=== PATIENT | male | born 1980 | race Caucasian/White ===

== ENCOUNTER 2021-11-29 10:27 | Day surgery (SDC) | payer OTHER, SELFPAY ==
[2021-11-28 11:36] VITALS: BMI 34.4
[2021-11-29] VITALS (7 sets, daily range): BP systolic 130–157; BP diastolic 82–96; PULSE 61–78; RESP 14–20; TEMP 36.1–36.6; O2SAT 95–99
--- NOTE | 2021-11-29 11:00 | ANES.PREANE2 ---
Pre-Anesthetic Assessment Height/Weight: Height 1.78 m Weight 108.862 kg Preop Diagnosis: Carpal tunnel syndrome right Operation Date: 11/29/21 12:00 Proposed Procedures p Carpal Tunnel Release 41624/g56.03(Right) - Mikael Mock MD Familial anesthetic complications: None Was Beta Edi taken within 24 hours: N/A Was Clonidine taken within 24 hours: N/A Social No alcohol and No tobacco Exam alert, oriented x 3, clear to auscultation bilaterally and regular rate & rhythm Airway Submandibular: within normal limits Cervical ROM: within normal limits Mallampati: Class I Dentition: full History/ROS No significant complaints Pulmonary None reported CV/HEM None reported None reported Hepatic None reported GI None reported Metabolic None reported Musc/skel None reported Neuropsych Neuropathy (Carpal tunnel ) Anesthetic Plan ASA status: 1 Anesthesia: Anesthesia Evaluation, MAC and Regional (specify below) Other: Plan [place] block with sedation Risk of > 500 ml blood loss (7ml/kg in children): No Medications/Allergies Home Medications Medication Instructions Recorded Confirmed Last Taken Type No Known Home Medications 09/17/21 11/28/21 Unknown History Allergies Allergy/AdvReac Type Severity Reaction Status Date / Time amoxicillin Allergy Unknown Verified 11/28/21 11:34 clindamycin Allergy Unknown Verified 11/28/21 11:34 [facility] Anesthesia Social History Smoking and tobacco status: never smoked Alcohol intake: never History of recent travel: No Data Anesthesia Cardiac Studies: No Data to Display
[2021-11-29] MEDS: sodium chloride 0.9% 1,000 ML 30 ML IV (11:43)
--- NOTE | 2021-11-29 11:59 | W.PM.OPSUD ---
Surgery/Procedure H&P Update DATE OF PROCEDURE: November 29, 2021 DATE H&P PERFORMED: 10/30/21 H&P UPDATE INFORMATION: I have reviewed H&P completed within last 30 days PREOP DIAGNOSIS: Carpal tunnel syndrome right PLANNED PROCEDURE: Operation Date: 11/29/21 12:00 Proposed Procedures p Carpal Tunnel Release [id number]/g56.03(Right) - Mikael Mock MD
--- NOTE | 2021-11-29 12:56 | P.OP_ITS ---
Operative Report Date of procedure: November 29, 2021 Pre-op diagnosis: Preop Diagnosis Carpal tunnel syndrome right Post-op diagnosis: same Post-op diagnosis: Same Procedure done: Right carpal tunnel release Pathology: none sent Surgeon: Mikael Mock Anesthesia: Nerve Block ([place] block) Estimated blood loss (mL): 2 Tourniquet time (min): 20 Findings: No masses or space-occupying lesion seen in the right carpal tunnel Condition: stable Disposition: PACU Procedure: Patient was taken to the operating room and anesthesia provided by the anesthesia service. She was prepped and draped with the arm exposed. A timeout was performed. A 3 cm long incision was made in line with the fourth ray from the distal edge of the carpal tunnel extending proximally. The subcutaneous fat and palmar fascia was divided with a scalpel blade. Under loupe magnification the ulnar neurovascular bundle was identified distally. A hemostat could be passed under the transverse carpal ligament allowing the distal 25% to be divided. A slotted guide was then passed beneath the transverse carpal ligament and the middle 50% divided. Blunt scissors were then passed over the guide freeing the proximal ligament. The tourniquet was deflated. Hemostasis provided with electrocautery. Wound edges were infiltrated with 10 cc of a half percent Marcaine solution. Skin edges were reapproximated with 3-0 Prolene. Sterile dressings were applied. The patient was taken to the recovery room in stable condition
--- NOTE | 2021-11-29 18:42 | ANE.PACU2 ---
Inpatient post-anesthesia follow up: Airway intact: Yes Vital signs: Temperature 97.9 F Pulse Rate 78 Respiratory Rate 14 Blood Pressure 141/88 Pulse Oximetry 98 Oxygen Delivery Me thod Room Air Oxygen Flow Rate 6 Fraction of Inspir ed Oxygen Hydration adequate: Yes Nausea and vomiting: No Pain level: 1 Mental status: Baseline
== END 2021-11-29 14:10 | disposition home or self-care (01) ==
PROVIDERS: PCP Family Medicine; Visit Provider Orthopaedic Surgery
PROC: (CPT 64721; principal; 2021-11-29 12:00)
DX: G56.01 Carpal tunnel syndrome, right upper limb (principal)
CPT/HCPCS: 64721; J0690; J2250; J2704; J3490; J7030

== ENCOUNTER 2022-05-30 05:51 | Day surgery (SDC) | payer OTHER, SELFPAY ==
[2022-05-29 11:23] VITALS: BMI 35.2
[2022-05-30] VITALS (8 sets, daily range): BP systolic 120–169; BP diastolic 84–102; PULSE 67–78; RESP 16–18; TEMP 36.1–36.5; O2SAT 92–97
[2022-05-30] MEDS: sodium chloride 0.9% 1,000 ML 30 ML IV (06:11)
[2022-05-30] MEDS: ceFAZolin 2,000 MG in sodium chloride 0.9% (plus) 50 ML 100 MG IV (07:04)
--- NOTE | 2022-05-30 07:45 | W.PM.OPSUD ---
Surgery/Procedure H&P Update DATE OF PROCEDURE: May 30, 2022 DATE H&P PERFORMED: 05/07/22 H&P UPDATE INFORMATION: I have reviewed H&P completed within last 30 days PREOP DIAGNOSIS: Left carpal tunnel syndrome PLANNED PROCEDURE: Operation Date: 05/30/22 07:00 Proposed Procedures p left carpal tunnel release/ [id number],G56.02(Left) - Mikael Mock MD
--- NOTE | 2022-05-30 07:46 | PM.OP ---
Operative Report Date of procedure: May 30, 2022 Pre-op diagnosis: Preop Diagnosis Left carpal tunnel syndrome Post-op diagnosis: same Post-op diagnosis: Same Procedure done: Left carpal tunnel release Pathology: none sent Surgeon: Mikael Mock Anesthesia: General Estimated blood loss (mL): 2 Tourniquet time (min): 6 Findings: No masses or space-occupying lesions were seen within the carpal tunnel Condition: stable Disposition: PACU Procedure: Patient was taken to the operating room and anesthesia provided by the anesthesia service. She was prepped and draped with the arm exposed. A timeout was performed. A 3 cm long incision was made in line with the fourth ray from the distal edge of the carpal tunnel extending proximally. The subcutaneous fat and palmar fascia was divided with a scalpel blade. Under loupe magnification the ulnar neurovascular bundle was identified distally. A hemostat could be passed under the transverse carpal ligament allowing the distal 25% to be divided. A slotted guide was then passed beneath the transverse carpal ligament and the middle 50% divided. Blunt scissors were then passed over the guide freeing the proximal ligament. The tourniquet was deflated. Hemostasis provided with electrocautery. Wound edges were infiltrated with 10 cc of a half percent Marcaine solution. Skin edges were reapproximated with 3-0 Prolene. Sterile dressings were applied. The patient was taken to the recovery room in stable condition
[2022-05-30] MEDS: HYDROcodone-acetaminophen 5-325 mg Tablet 1 TAB PO (08:42)
--- NOTE | 2022-05-30 14:47 | ANES.PREANE2 ---
Pre-Anesthetic Assessment Height/Weight: Height 1.78 m Weight 111.13 kg Temp Pulse Resp BP Pulse Ox O2 Del Method O2 Flow Rate 97.2 F L 76 18 152/84 96 2 05/30/22 08:30 05/30/22 08:30 05/30/22 08:30 05/30/22 08:30 05/30/22 08:30 05/30/22 08:30 05/30/22 08:10 Preop Diagnosis: Left carpal tunnel syndrome Operation Date: 05/30/22 07:00 Proposed Procedures p left carpal tunnel release/ [id number],G56.02(Left) - Mikael Mock MD Familial anesthetic complications: none Was Beta Edi taken within 24 hours: N/A Was Clonidine taken within 24 hours: N/A Last intake: Intake Last Liquid Date 05/29/22 Last Liquid Time 21:00 Last Solid Date 05/29/22 Last Solid Time 21:00 Social No alcohol and No tobacco Exam alert, oriented x 3, clear to auscultation bilaterally and regular rate & rhythm Airway Submandibular: within normal limits Cervical ROM: within normal limits Mallampati: Class II Dentition: full Metabolic Morbid Obesity Neuropsych Neuropathy Anesthetic Plan ASA status: 2 Anesthesia: MAC Medications/Allergies Home Medications Medication Instructions Recorded Confirmed Last Taken Type hydrocodone 5 mg-acetaminophen 325 1 tab PO Q4H #15 tabs 05/30/22 Unknown Rx mg tablet Allergies Allergy/AdvReac Type Severity Reaction Status Date / Time amoxicillin Allergy Unknown Verified 05/29/22 11:22 clindamycin Allergy Unknown Verified 05/29/22 11:22 [facility] Anesthesia Social History Smoking and tobacco status: never smoked Alcohol intake: never History of recent travel: No Data Anesthesia Cardiac Studies: No Data to Display
--- NOTE | 2022-05-30 14:48 | ANE.PACU2 ---
Inpatient post-anesthesia follow up: Airway intact: Yes Vital signs: Temperature 97.2 F Pulse Rate 76 Respiratory Rate 18 Blood Pressure 152/84 Pulse Oximetry 96 Oxygen Delivery Me thod Room Air Oxygen Flow Rate 2 Fraction of Inspir ed Oxygen Hydration adequate: Yes Nausea and vomiting: No Pain level: 2 Mental status: Baseline
== END 2022-05-30 08:52 | disposition home or self-care (01) ==
PROVIDERS: PCP Family Medicine; Visit Provider Orthopaedic Surgery
PROC: (CPT 64721; principal; 2022-05-30 07:00)
DX: G56.02 Carpal tunnel syndrome, left upper limb (principal); E66.01 Morbid (severe) obesity due to excess calories; Z68.35 Body mass index [BMI] 35.0-35.9, adult
CPT/HCPCS: 64721; J1100; J2250; J2370; J2405; J2704; J3010; J3490; J7030

== ENCOUNTER 2023-03-01 21:52 | Emergency (ER) | payer OTHER, SELFPAY ==
[2023-03-01 21:58] VITALS: BP 171/97; PULSE 67; RESP 18; TEMP 36.4; O2SAT 98
[2023-03-02] VITALS: BP 133/90; PULSE 73; O2SAT 94
[2023-03-02] MEDS: dexamethasone 4 mg Tablet 10 MG PO (00:05)
[2023-03-02 00:06] VITALS: RESP 18; O2SAT 95
[2023-03-02] MEDS: oxyCODONE-APAP 5-325 mg Tablet 2 TAB PO (00:06)
[2023-03-02] MEDS: ketorolac 60 mg/2 mL INJ IM (00:07)
[2023-03-02] MEDS: cephALEXin 500 mg Capsule 1000 MG PO (00:08)
[2023-03-02 00:13] VITALS: BP 135/87; PULSE 65; O2SAT 98
[2023-03-02 00:51] VITALS: BP 142/99; PULSE 69; RESP 18; O2SAT 96
--- NOTE | 2023-03-02 01:37 | ED_ITS ---
HPI - Dental/Oral General: Chief complaint: Dental/Oral Stated complaint: Jaw Pain Time Seen by Provider: 03/01/23 23:05 Source: patient and family History of Present Illness: 42-year-old male patient seen in urgent care setting, and prescribed Bactrim for presumed dental abscess on the left lower side. He complains of continued pain despite 3 doses of antibiotics. Pain is not controlled using ibuprofen, Tylenol, and Aleve. No fever. No trouble swallowing. Jaw feels swollen. MD Complaint: tooth pain Onset (ago): day(s) Duration: constant Severity: moderate Relieving factors: NSAIDs Exacerbating factors: chewing and swallowing Associated symptoms: Reports ear or mastoid pain, gum swelling and odynophagia (Mild); Denies fever(s) or tongue swelling Review of Systems Const: Denies: fever(s) ENMT: Reports: odynophagia (Mild) and ear or mastoid pain Card: Denies: chest pain Resp: Denies: dyspnea GI: Denies: vomiting All/Imm: Denies: tongue swelling PFSH ED PFSH: Social History Smoking and tobacco status: never smoked Alcohol intake: never Substance/Drug Use: never Physical Exam Const: COMMON NORMALS: no acute distress GENERAL APPEARANCE: cooperative; not ill appearing and not frail appearing HENMT: COMMON NORMALS: normocephalic, atraumatic and Normal external nose present HEAD & SCALP: normocephalic and atraumatic FACE & SINUS: normal facial exam and face symmetric NOSE: Normal external nose present OTHER: Left lower molar surrounding gingival inflammation and swelling. No pointing abscess noted. Tender to palpation. Eye: COMMON NORMALS: Equal, round and reactive pupils present and EOMs intact bilaterally PUPIL: Yes Equal, round and reactive pupils present Neck/C-Spine: GENERAL: Yes trachea midline and Yes lymphadenopathy Lymphadenopathy location: submandibular and anterior cervical OTHER: No significant swelling to the floor of the jaw Chest: CHEST: Yes Symmetrical chest wall rise Resp: COMMON NORMALS: normal respiratory effort, No retractions, No use of accessory muscles and clear to auscultation bilaterally AUSCULTATION: clear to auscultation bilaterally Cardio: COMMON NORMALS: regular rate and regular rhythm RATE: regular rate RHYTHM: regular rhythm GI: COMMON NORMALS: Normal to inspection, nondistended, normoactive bowel sounds present Extremity: COMMON NORMALS: no pedal edema Neuro: SHILO COMA SCALE: document GCS findings [place] coma scale eye opening: Spontaneous [place] coma scale verbal response: Orientated [place] coma scale motor response: Obey commands Shilo coma scale total score: 15 SENSORY EXAM: Yes extremities (intact) Psych: COMMON NORMALS: speech normal SPEECH: Yes normal speech Skin: COMMON NORMALS: no rashes or lesions noted GENERAL SKIN EXAM: no rashes or lesions noted Course Vital Signs: Vital signs: Vital Signs Temperature 97.6 F 03/01/23 21:58 Pulse Rate 69 03/02/23 00:51 Respiratory Rate 18 03/02/23 00:51 Blood Pressure 142/99 03/02/23 00:51 Pulse Oximetry 96 03/02/23 00:51 Oxygen Delivery Me thod Room Air 03/02/23 00:13 [facility] - Dental/Oral Medical Decision Making The patient does note a history of extensive sinus problems. However, his sinus exam is essentially normal. He does have an inflamed swollen gum on his lower left molar area with tooth tenderness. There are some lymphadenopathy on that side. He is given dexamethasone, Toradol, pain medication, and Keflex here. He carries allergies to clindamycin and penicillins. He believes he has taken cephalexin before without any problem. Bactrim will be switched to cephalexin. Pain medication and Toradol to alternate. Follow-up with dentist. Discharge Plan Discharge Patient Disposition: Home Clinical Impression: Gingival abscess Condition: Stable Prescriptions: New cephalexin 500 mg capsule 500 mg PO Q6H 10 Days Qty: 40 0RF hydrocodone-acetaminophen 5-325 mg tablet 1 tab PO Q8H PRN (Reason: pain) Qty: 7 0RF ketorolac 10 mg tablet 10 mg PO TID PRN (Reason: pain) Qty: 10 0RF Discharge Orders: Discharge ED (Routine); Ordered 03/01/23 Ordered By: Nikhil Thompson Referrals: Jevon Suarez MD [Primary Care Provider] - 4-7 days Patient Instructions: Dental Abscess (ED), Opioid Safety, Pain Management Activity Restrictions/Additional Instructions: Stop your Bactrim, in favor of the cephalexin you were prescribed. Do not take ibuprofen or Aleve while taking ketorolac. You can alternate this with pain medication prescribed. See your dentist this coming week. Return for problems. Coding Level of Care Code ED Secondary Teacher for Bev Christiansen
== END 2023-03-02 00:53 | disposition home or self-care (01) ==
PROVIDERS: Emergency Provider Emergency Medicine; PCP Family Medicine
DX: K05.20 Aggressive periodontitis, unspecified (principal); Z88.0 Allergy status to penicillin
CPT/HCPCS: 96372; 99284; J1885; J8540

== ENCOUNTER 2024-08-25 19:09 | Emergency (ER) | payer OTHER, SELFPAY ==
--- NOTE | 2024-08-25 19:17 | XRR_ITS ---
PROCEDURE INFORMATION: Exam: XR Chest Exam date and time: 08/25/2024 8:27 PM Age: 44 years old Clinical indication: Cough TECHNIQUE: Imaging protocol: Radiologic exam of the chest. Views: 1 view. COMPARISON: No relevant prior studies available. FINDINGS: Lungs: Unremarkable. No consolidation. Pleural spaces: Unremarkable. No pleural effusion. No pneumothorax. Heart/Mediastinum: Unremarkable. No cardiomegaly. Bones/joints: Unremarkable. XR/XR chest 1V portable [id number] IMPRESSION: No acute cardiopulmonary process.
[2024-08-25 19:24] VITALS: BP 155/95; PULSE 77; TEMP 36.7; O2SAT 98; BMI 37.3
[2024-08-25 20:08] VITALS: BP 144/83; PULSE 81; RESP 17; O2SAT 96
--- NOTE | 2024-08-25 20:10 | ECG_ITS ---
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 Measurements Intervals [place] Rate: 78 P: 34 LA: 150 QRS: 35 QRSD: 88 T: 46 QT: 356 QTc: 408 Interpretive Statements SINUS RHYTHM No previous ECG available for comparison Electronically Signed On 08-26-2024 12:27:12 OFFICE RN by Oswald Mckay M.D. [id number]
--- NOTE | 2024-08-25 20:13 | W.ED.SYNCOPE ---
HPI - Syncope General: Chief Complaint: Syncope Stated Complaint: coughed till passed out 2x Time Seen by Provider: 08/25/24 20:01 Source: patient Mode of arrival: ambulatory Limitations: no limitations History of Present Illness: Patient is a 44-year-old male with no pertinent past medical history who reports to the emergency department with a syncopal episode occurring tonight. This was reportedly witnessed and came after patient had a coughing spell. Patient states that 3 weeks ago he had a similar incident where he was coughing and suddenly blacked out. That episode was witnessed to but he did not seek evaluation afterwards. Patient states he has been coughing since beginning of June, has been seen urgent care for this and treated with multiple rounds of antibiotics but cough is still present. Is also tried [id number] antitussives as well as Tessalon Perles. With wolf's episode, states that he was laughing and this caused him to have a coughing fit, this seems to be the only thing that causes him to have an exacerbation his cough. He does note that it has been constant since he noticed it almost 2 months ago. It is nonproductive. He does not report any chest pain, states that when he has a coughing fit he does feel short of breath but is not short of breath at baseline. Denies any injuries with falling, reportedly tonight he just fell out of his chair. No pertinent cardiac history or previous cardiac workup, no specific family history of cardiac issues at an early age. MD complaint: other (Syncope) Onset (ago): minute(s) -: second(s) Prodromal symptoms: other (Coughing excessively) Witnessed: Yes - by Bystander Injuries sustained associated with event: none Associated symptoms: Deny abdominal pain, chest pain, fever(s), headache(s), lightheadedness or nausea Treatments prior to arrival: none Related Data Previous Rx's Medication Instructions Recorded hydrocodone 5 mg-acetaminophen 325 1 tab PO Q8H PRN pain #7 tabs 03/01/23 mg tablet ketorolac 10 mg tablet 10 mg PO TID PRN pain #10 tabs 03/01/23 Allergies Allergy/AdvReac Type Severity Reaction Status Date / Time amoxicillin Allergy Mild ALGY-Rash Verified 08/25/24 19:34 cephalexin Allergy ALGY-Rash Verified 08/25/24 19:34 clindamycin Allergy ALGY-Rash Verified 08/25/24 19:34 Review of Systems General: Reports: 10 or more systems reviewed and unremarkable except in HPI and below Const: Denies: fever(s), chills or fatigue Eyes: Denies: change in vision ENMT: Denies: throat pain, ear or mastoid pain or nasal discharge Card: Reports: syncope; Denies: chest pain, palpitations, swelling of feet/ankles or lightheadedness Resp: Reports: dyspnea and non-productive cough; Denies: productive cough or wheezing GI: Denies: abdominal pain, nausea, vomiting, diarrhea or constipation : Denies: flank pain, difficulty urinating, dysuria or urinary frequency Musc: Denies: neck pain, back pain or joint pain Skin/Breast: Denies: rash Neuro: Denies: headache(s), numbness in extremities or weakness in extremities PFSH ED PFSH: Social History Smoking and tobacco/nicotine status: never used tobacco/nicotine Alcohol intake: never Substance/Drug Use: never Physical Exam Const: COMMON NORMALS: no acute distress, patient oriented x3 and no limitations GENERAL APPEARANCE: cooperative, comfortable and well developed ORIENTATION/CONSCIOUSNESS: Yes awake, Yes oriented to person, Yes oriented to place and Yes oriented to time HENMT: COMMON NORMALS: normocephalic, atraumatic and hearing grossly normal bilaterally HEAD & SCALP: normocephalic and atraumatic Eye: COMMON NORMALS: Equal, round and reactive pupils present, EOMs intact bilaterally and conjunctivae normal CONJUNCTIVA: Yes conjunctivae normal PUPIL: Yes Equal, round and reactive pupils present Neck/C-Spine: COMMON NORMALS: full ROM, supple and no JVD Resp: COMMON NORMALS: normal respiratory effort, No retractions, No use of accessory muscles and clear to auscultation bilaterally AUSCULTATION: clear to auscultation bilaterally Cardio: COMMON NORMALS: no JVD, regular rate, regular rhythm, No clicks present (Cardio), No murmurs present (Cardio) and No rub (Cardio) RATE: regular rate RHYTHM: regular rhythm Extremity: COMMON NORMALS: normal to inspection, full ROM and capillary refill normal Neuro: COMMON NORMALS: patient oriented x3, moves all extremities, no focal motor deficits and no sensory deficits noted SENSORIUM/ORIENTATION: Yes oriented to person, Yes oriented to place and Yes oriented to time Skin: COMMON NORMALS: no rashes or lesions noted GENERAL SKIN EXAM: no rashes or lesions noted Course Vital Signs: Vital signs: Vital Signs Temperature 98.1 F 08/25/24 19:24 Pulse Rate 76 08/25/24 22:09 Respiratory Rate 16 08/25/24 22:09 Blood Pressure 124/74 08/25/24 22:09 Pulse Oximetry 95 08/25/24 22:09 Oxygen Delivery Me thod Room Air 08/25/24 20:48 MDM - Syncope Medical Decision Making Patient presented after syncopal episode today following a coughing fit. This was a second incident. No pertinent cardiac history or other medical history to note for that matter. He had been treated previously with Tessalon Perles, multiple antibiotics, and steroids for his cough. Still was having the cough, physical exam was normal but he did have a couple of episodes of nonproductive coughing fits here in the emergency department. His troponin was normal, EKG obtained showing normal sinus rhythm with no acute STEMI. Chest x-ray unremarkable and his lab work normal. Unknown what might be causing his cough, he had stated that promethazine helped in the past so a dose was ordered for here in the emergency department. Otherwise told him to follow-up with his primary care for further outpatient management, does not appear that his syncopal episode is cardiac related and no signs of pneumonia or other pulmonary process warranting further workup here in the emergency department. Although strict return precautions given, patient agrees with this plan will be discharged home and call his primary care tomorrow to set up an appointment. Lab Data 08/25/24 20:23 08/25/24 20:23 Radiology Impressions Chest X-Ray 08/25/24 19:17 IMPRESSION: No acute cardiopulmonary process. Laboratory Results WBC 6.51 10^3/uL (3.29-11.43) 08/25/24 20:23 RBC 5.51 10^6/uL (3.85-5.65) 08/25/24 20:23 Hgb 16.30 g/dL (11.27-16.99) 08/25/24 20:23 Hct 49.4 % (37-53) 08/25/24 20:23 MCV 89.7 fl (82-101) 08/25/24 20:23 MCH 29.6 pg (27-33) 08/25/24 20:23 MCHC 33.0 g/dL (30-55) 08/25/24 20:23 RDW 13.4 % (12.1-15.1) 08/25/24 20:23 Plt Count 170 10^3/cmm (157-399) 08/25/24 20:23 MPV 10.0 fL (7.4-10.4) 08/25/24 20:23 Neut % (Auto) 49.6 % 08/25/24 20:23 Lymph % (Auto) 30.3 % 08/25/24 20:23 [place] % (Auto) 13.8 % 08/25/24 20:23 Eos % (Auto) 4.3 % 08/25/24 20:23 Baso % (Auto) 1.7 % 08/25/24 20:23 Neut # (Auto) 3.23 10^3/uL (1.8-7.7) 08/25/24 20:23 Lymph # (Auto) 2.0 10^3/uL (0.8-4.8) 08/25/24 20:23 [place] # (Auto) 0.9 10^3/uL (0.2-0.9) 08/25/24 20:23 Eos # (Auto) 0.3 10^3/uL (0.0-0.8) 08/25/24 20:23 Baso # (Auto) 0.1 10^3/uL (0.0-0.1) 08/25/24 20:23 Nucleated RBC % (auto) 0 % 08/25/24 20: Nucleated RBCs # 0.0 /100WBC 08/25/24 20:23 Sodium 139 mmol/L (136-145) 08/25/24 20:23 Potassium 4.5 mmol/L (3.5-5.1) 08/25/24 20:23 Chloride 104 mmol/L (98-107) 08/25/24 20:23 Carbon Dioxide 24 mmol/L (22-29) 08/25/24 20:23 Anion Gap 15.5 (5-19) 08/25/24 20:23 BUN 10 mg/dL (6-20) 08/25/24 20:23 Creatinine 1.2 mg/dL (0.7-1.2) 08/25/24 20:23 GFR Calculation 65.5 mL/min (90-130) L 08/25/24 20:23 Glucose 110 mg/dL (65-115) 08/25/24 20:23 Calculated Osmolality 288 mOsm/kg (285-295) 08/25/24 20:23 Calcium 8.5 mg/dL (8.5-10.5) 08/25/24 20:23 Total Bilirubin 0.6 mg/dL (0.15-1.2) 08/25/24 20:23 AST 27 U/L (0-40) 08/25/24 20:23 ALT 53 U/L (0-41) H 08/25/24 20:23 Alkaline Phosphatase 98 U/L (40-130) 08/25/24 20:23 Troponin T Baseline < 6 ng/L (0-15) 08/25/24 20:23 Total Protein 6.4 g/dL (6.6-8.7) L 08/25/24 20:23 Albumin 4.2 g/dL (3.5-5.2) 08/25/24 20:23 Globulin 2.2 g/dL (1.3-4.6) 08/25/24 20:23 All radiology interpretation(s) finalized by discharge EKG Data EKG 1: I personally reviewed and interpreted this EKG as follows: EKG interpretation date: 08/25/24 EKG interpretation time: 20:20 Prior EKG tracings: not available for review Interpretation: Normal sinus rhythm. Rate 78. No acute STEMI. No previous for comparison. Discharge Plan Discharge Patient Disposition: Home Clinical Impression: Syncope, non cardiac, Chronic cough Condition: Stable Prescriptions: No Action hydrocodone-acetaminophen 5-325 mg tablet 1 tab PO Q8H PRN (Reason: pain) Qty: 7 0RF ketorolac 10 mg tablet 10 mg PO TID PRN (Reason: pain) Qty: 10 0RF Discharge Orders: Discharge ED (Routine); Ordered 08/25/24 Ordered By: Bulmaro Burgos Referrals: Jevon Suarez MD [Primary Care Provider] - Patient Instructions: Syncope (ED) Activity Restrictions/Additional Instructions: Please call your primary care's office in the morning to schedule follow-up appointment. Drink plenty of fluids, if you feel that you need to cough, make sure you are in a seated position and not in a position to have a syncopal episode. Please return with any chest pain, shortness of breath, or other concerning symptoms. Coding Level of Care Code ED Chief Dog License Inspector for Bev Christiansen
[2024-08-25 20:27] LABS: Basophils # 0.1 10^3/uL (0.0-0.1); Basophils % 1.7 %; Eosinophils # 0.3 10^3/uL (0.0-0.8); Eosinophils % 4.3 %; Hematocrit 49.4 % (37-53); Lymphocytes % 30.3 %; Mean Corpuscular Hemoglobin 29.6 pg (27-33); Mean Corpuscular Volume 89.7 fl (82-101); Monocytes # 0.9 10^3/uL (0.2-0.9); Monocytes % 13.8 %; Neutrophils # 3.23 10^3/uL (1.8-7.7); Neutrophils % 49.6 %; Nucleated Red Blood Cells % 0 %; Platelet Count 170 10^3/cmm (157-399); Red Blood Count 5.51 10^6/uL (3.85-5.65); Red Cell Distribution Width 13.4 % (12.1-15.1); White Blood Count 6.51 10^3/uL (3.29-11.43)
[2024-08-25 20:45] LABS: Troponin(5th) Baseline < 6 ng/L (0-15)
[2024-08-25 20:48] VITALS: BP 148/97; PULSE 96; RESP 16; O2SAT 96
[2024-08-25 21:06] VITALS: BP 150/92; PULSE 73; RESP 16; O2SAT 94
[2024-08-25 21:19] LABS: Alanine Aminotransferase 53 U/L (0-41); Albumin Level 4.2 g/dL (3.5-5.2); Alkaline Phosphatase 98 U/L (40-130); Anion Gap 15.5 (5-19); Aspartate Amino Transferase 27 U/L (0-40); Blood Urea Nitrogen 10 mg/dL (6-20); Calcium 8.5 mg/dL (8.5-10.5); Carbon Dioxide 24 mmol/L (22-29); Chloride 104 mmol/L (98-107); Creatinine Clr Calc Pharmacy 100.0288; Globulin 2.2 g/dL (1.3-4.6); Glomerular Filtration Rate 65.5 mL/min (90-130); Glucose 110 mg/dL (65-115); Osmolality Calculated 288 mOsm/kg (285-295); Potassium 4.5 mmol/L (3.5-5.1); Sodium 139 mmol/L (136-145); Total Bilirubin 0.6 mg/dL (0.15-1.2); Total Protein 6.4 g/dL (6.6-8.7)
[2024-08-25 22:09] VITALS: BP 124/74; PULSE 76; RESP 16; O2SAT 95
[2024-08-25 22:55] LABS: Troponin 5 2HR 8.02 ng/L (0-15); Troponin 5 2HR Delta 2.02001 ABS# (0-10)
[2024-08-25 23:05] VITALS: BP 124/74; PULSE 76; O2SAT 95
== END 2024-08-25 23:06 | disposition home or self-care (01) ==
PROVIDERS: Emergency Provider Physician Assistant; PCP Family Medicine
DX: R55 Syncope and collapse (principal); R05.9 Cough, unspecified
CPT/HCPCS: 36415; 71045; 80053; 84484; 85025; 93005; 93010; 99285

== ENCOUNTER → 2024-08-31 14:42 | Outpatient (BNVA) | payer OTHER, SELFPAY | PROVIDERS: PCP Family Medicine; Visit Provider Family Medicine | DX: R05.3 Chronic cough (principal); R55 Syncope and collapse | CPT/HCPCS: 83880; 86615 ==

== ENCOUNTER 2024-12-23 08:10 | Day surgery (SDC) | payer OTHER, SELFPAY ==
--- NOTE | 2024-12-23 08:12 | W.PM.OPSUD ---
Surgery/Procedure H&P Update DATE OF PROCEDURE: December 23, 2024 DATE H&P PERFORMED: 11/24/24 H&P UPDATE INFORMATION: I have reviewed H&P completed within last 30 days, I have examined patient prior to procedure, No changes to prior documentation, Changes to prior documentation as noted here and Risks and benefits of the procedure reviewed PLANNED PROCEDURE: Operation Date: 12/23/24 09:40 Proposed Procedures p Colonoscopy 52117 G0121 Z12.11(Not Applicable) - Bulmaro Ervin MD
[2024-12-23 08:25] VITALS: BP 149/95; PULSE 75; RESP 16; TEMP 36.3; O2SAT 97
[2024-12-23 08:28] VITALS: BMI 37.3
[2024-12-23] MEDS: sodium chloride 0.9% 1,000 ML 15 ML IV (08:34)
--- NOTE | 2024-12-23 08:48 | ANES.PREANE2 ---
Pre-Anesthetic Assessment Height/Weight: Height 1.78 m Weight 117.934 kg Temp Pulse Resp BP Pulse Ox O2 Del Method 97.3 F L 75 16 149/95 97 Room Air 12/23/24 08:25 12/23/24 08:25 12/23/24 08:25 12/23/24 08:25 12/23/24 08:25 12/23/24 08:25 Preop Diagnosis: Screen Operation Date: 12/23/24 09:40 Proposed Procedures p Colonoscopy 22920 [id number] Z12.11(Not Applicable) - Bulmaro Ervin MD Familial anesthetic complications: none Was Beta Edi taken within 24 hours: N/A Was Clonidine taken within 24 hours: N/A Last intake: Intake Last Liquid Date 12/22/24 Last Liquid Time 21:00 Last Solid Date 12/21/24 Last Solid Time 21:00 Social No alcohol and No tobacco Exam alert, oriented x 3, clear to auscultation bilaterally and regular rate & rhythm Airway Cervical ROM: within normal limits Mallampati: Class II Dentition: full History/ROS No significant history except as noted and No significant complaints Pulmonary None reported CV/HEM None reported None reported Hepatic None reported GI None reported Metabolic None reported Musc/skel None reported Neuropsych None reported Anesthetic Plan ASA status: 1 Anesthesia: MAC Risk of > 500 ml blood loss (7ml/kg in children): No Medications/Allergies Home Medications ?Medication ?Instructions ?Recorded ?Confirmed ?Last Taken ?Type No Known Home Medications 11/24/24 12/20/24 Unknown History Allergies Allergy/AdvReac Type Severity Reaction Status Date / Time amoxicillin Allergy Mild ALGY-Rash Verified 12/20/24 11:03 cephalexin Allergy ALGY-Rash Verified 12/20/24 11:03 clindamycin Allergy ALGY-Rash Verified 12/20/24 11:03 Current Medications Generic Name Dose Route Start Last Admin Trade Name Freq PRN Reason Stop Dose Admin Sodium Chloride 1,000 mls @ 15 mls/hr 12/23/24 08:15 12/23/24 08:34 Sodium Chloride 0.9% IV 12/24/24 08:14 15 mls/hr .Q24H PRN Administration COLONOSCOPY FLUIDS PFSH Anesthesia Social History Smoking and tobacco/nicotine status: never used tobacco/nicotine Alcohol intake: never Substance/Drug Use: never
[2024-12-23 09:30] VITALS: BP 116/81; PULSE 76; RESP 18; TEMP 36.1; O2SAT 94
[2024-12-23 09:52] VITALS: BP 131/83; PULSE 73; RESP 18; O2SAT 95
--- NOTE | 2024-12-23 10:00 | ANE.PACU2 ---
Inpatient post-anesthesia follow up: Vital signs: Temperature 97 F Pulse Rate 73 Respiratory Rate 18 Blood Pressure 131/83 Pulse Oximetry 95 Oxygen Delivery Me thod Room Air Oxygen Flow Rate 2 Fraction of Inspir ed Oxygen
== END 2024-12-23 10:03 | disposition home or self-care (01) ==
PROVIDERS: PCP Family Medicine; Visit Provider Surgery
PROC: 0DJD8ZZ Inspection of Lower Intestinal Tract, Via Natural or Artificial Opening Endoscopic (ICD-10-PCS; CPT 45378; principal; 2024-12-23 09:40)
DX: Z12.11 Encounter for screening for malignant neoplasm of colon (principal); Z88.0 Allergy status to penicillin; Z88.1 Allergy status to other antibiotic agents
CPT/HCPCS: 45378; J2704; J7030